=== PATIENT | male | born 1965 | race African-American/Black ===

== ENCOUNTER 2017-01-20 12:06 | Emergency (ER) | payer BC ==
[~2017-01-20] VITALS: Ht 182.9 cm; Wt 129.3 kg
[~2017-01-20 12:06] MED LIST: AMARYL4 MG PO; AMBIEN 5 MG TABL5 M1 PO; ASPIRIN325 PO; CLONAZEPAM; CLONAZEPAM 1 MG1 M1 PO; EFFIENT10 MG PO; GLUCOPHAGE1000 MG PO; GLYBURIDE 5 MG T5 M1; HYDRALAZINE 2525 MG PO; IMDUR 30 MG TAB30 M1 PO; LANTUS100 UNIT/M SUBQ; LIPITOR10 MG PO; LISINOPRIL10 MG PO; METOPROLOL SUCC50 MG PO; NITROGLYCERIN0.4 MG SUBLING; NOVOLOG100 UNIT/1 SUBQ; TOPROL XL25 MG PO; XANAX1 MG PO
[2017-01-20] MEDS ORDERED: NORCO 5-325 TA1 EACH PO (12:32)
[2017-01-20] MEDS ORDERED: CLEOCIN HCL150 MG PO (12:49)
== END 2017-01-20 13:01 | disposition home or self-care (01) ==
LOC: ER 12:06
DX: K04.7 Periapical abscess without sinus (principal); F41.0 Panic disorder [episodic paroxysmal anxiety]; E11.9 Type 2 diabetes mellitus without complications; Z86.14 Personal history of Methicillin resistant Staphylococcus aureus infection; Z87.891 Personal history of nicotine dependence; Z79.4 Long term (current) use of insulin

== ENCOUNTER 2017-08-23 21:58 | Inpatient (IN) | payer BC ==
[~2017-08-23] VITALS: Ht 182.9 cm; Wt 137.2 kg
--- NOTE | ~2017-08-23 | H ---
[facility] [place] [address] HISTORY AND PHYSICAL Name: RIZWAN PICKERING Room #: 203-P ADM IN M.R.#: [id number] Admission: 08/24/17 Attend Phys: Navneet Jacobson DO Discharge: Date of : 65 Report #: [id number] THIS REPORT FOR: //name// CC: Navneet DRIVER DATE OF SERVICE: 08/24/2017 HISTORY OF PRESENT ILLNESS: This 52-year-old black male was admitted with acute kidney injury and dehydration. He developed diarrhea suddenly yesterday and had 2 profuse liquid stools. He became weak and prostrate, his blood sugars over 500. He denied any recent antibiotic use or exposure to anyone with diarrhea. He says before yesterday he was doing fairly well with blood sugars usually in the 100s. PAST MEDICAL HISTORY: Multiple comorbidities including a myocardial infarction, treated here at [facility] in 2016 with a stent in the right coronary artery. He has had hypertensive heart disease without heart failure, lumbar radiculopathy, type 2 diabetes with neuropathy, obstructive sleep apnea, chronic kidney disease stage 3, obesity, anxiety, depression with panic attacks, GERD, previous alcohol abuse, history of iron deficiency anemia and diverticular bleed with chronic anemia. PREVIOUS SURGERIES: Left great toe bunionectomy, bilateral carpal tunnel surgery, uvulectomy, herniated diskectomy of the lumbar spine, skin graft to the right foot, arthroscopic shoulder surgery. Two drug-eluting stents to the right coronary artery. Osteomyelitis in 2014, diabetic foot ulcer, allergic rhinitis, depression following the of his from cancer several years ago. MEDICATIONS ON ADMISSION: Lantus 30 units daily, NovoLog sliding scale 5 units before meals for sugar 150-199, 10 units for over 200. Hydralazine 100 mg t.i.d., isosorbide mononitrate 60 mg daily, duloxetine 60 mg daily, cyclobenzaprine 10 mg t.i.d. p.r.n. muscle spasm. Nitroglycerin sublingual p.r.n. chest pain. Tamsulosin 0.4 mg daily, Ranexa 500 mg b.i.d., omeprazole 20 mg daily, carvedilol 25 mg b.i.d., atorvastatin 20 mg daily, metformin 1000 mg b.i.d., furosemide 40 mg daily, Klonopin 2 mg at bedtime and Xanax 1 mg t.i.d. p.r.n. anxiety, gabapentin 100 mg t.i.d., meclizine 25 mg q.6 h. p.r.n. vertigo. Wears CPAP at night. SOCIAL HISTORY: He lives alone. He used to work at [employer], but has been unable to return to work since 12/2015, and his return to work is questionable. He denies recent chest pain or shortness of breath. He did vomit once in the ambulance on the way to the hospital. He denies rash, confusion, dysphagia, headache. PHYSICAL EXAMINATION: [facility] [place] [facility] [address] [address] HISTORY AND PHYSICAL Name: RIZWAN PICKERING Room #: 203-P [facility] IN ..#: [id number] Admission: 08/24/17 Attend Phys: Navneet Jacobson, DO Discharge: Date of : 65 Report #: [id number] GENERAL: Large, weak but alert black male. VITAL SIGNS: Initial BP 76/47, currently 111/79. Pulse 84, respirations 16. Temp afebrile. HEAD: No rash or trauma. EARS, NOSE AND THROAT: Mucosa is dry. His tongue is thick in size. NECK: Supple, without bruits. LUNGS: Clear. CARDIOVASCULAR: Regular, without definite gallop. ABDOMEN: Obese and soft without tenderness. Bowel sounds are not hyperactive. EXTREMITIES: No edema. NEUROLOGIC: He has very poor sensory function in his feet. EKG shows nonspecific ST changes and intraventricular conduction delay. Chest x-ray shows no acute abnormality. LABORATORY DATA: Sodium 128, potassium 4.5, CO2 of 22, BUN 46, creatinine 2.7 (creatinine was 2.0 one month ago), blood sugar 129. Liver enzymes normal. Albumin normal. Estimated GFR 30. Hemoglobin 12.1 grams, white count 13,000, with a left shift. BNP slightly high at 462. IMPRESSION: 1. Acute kidney injury secondary to diarrhea secondary to gastroenteritis. 2. Chronic kidney disease stage 3. 3. Coronary artery disease with 2 coronary stents in the right coronary artery. 4. Hypertensive heart disease. 5. Diabetes mellitus type 2 with neuropathy. 6. Lumbar radiculopathy with lumbar degenerative disk disease. 7. Obstructive sleep apnea. 8. Prostatism. 9. Anxiety, depression. 10. Gastroesophageal reflux disease. 11. Hyponatremia secondary to dehydration. PLAN: Continue rehydration cautiously. Monitor cardiac and renal function closely. Hold metformin, advance diet and activity as able. PROGNOSIS: Guarded. Attempt to control blood sugars. <ELECTRONICALLY SIGNED> By: Navneet Jacobson DO 08/25/17 0719 0822 0933 Navneet Jacobson DO /nt
--- NOTE | ~2017-08-23 | D ---
[facility] [place] [address] DISCHARGE SUMMARY Name: RIZWAN PICKERING JR Room #: 203-P [facility] IN M.R.#: [id number] Admission: 08/24/17 Attend Phys: Navneet Jacobson DO Discharge: 08/26/17 Date of : 65 Report #: [id number] THIS REPORT FOR: //name// CC: Navneet Jacobson [facility] DATE OF SERVICE: 08/26/2017 HISTORY OF PRESENT ILLNESS: This 52-year-old black male who was admitted with acute kidney injury and dehydration following 1 day of severe diarrhea. His past history included multiple comorbidities including DM type 2 with neuropathy, previous myocardial infarction with stents in the right coronary artery, hypertension, hypertensive heart disease with heart failure, lower GI bleeding with anemia, lumbar radiculopathy, obstructive sleep apnea, chronic kidney disease stage 3, depression with panic attacks, GERD, diverticulosis and previous alcohol abuse. HOSPITAL COURSE: PHYSICAL EXAMINATION: GENERAL: Initial physical revealed a weak, large black male. VITAL SIGNS: Blood pressure was low at 76/47. He was afebrile. Head and neck were negative except for dry mucosa. LUNGS: Clear. HEART: Negative. ABDOMEN: Soft and obese, nontender. EXTREMITIES: Had no edema or open sores. NEUROLOGIC: With very poor sensory function in his feet. LABORATORY DATA: Initial BUN was 46, creatinine 2.7, sodium 128, potassium 4.5, CO2 22, blood sugar 129. Liver enzymes normal. White count 13,000; hemoglobin 12 g. BNP high at 462. The patient received IV fluids and supplemental oxygen. EKG showed intraventricular conduction delay and an old inferior wall CT. The patient improved. His final hemoglobin g, white count 7300. Sodium 132, potassium 4.4, CO2 24, BUN 34, creatinine 1.9, estimated GFR 45, serum albumin is low at 3.2. On 08/26/2017, patient has good appetite, stable vital signs, was ambulatory and felt better. Had no further diarrhea here. He was discharged on a diabetic, low salt diet. DISCHARGE MEDICATIONS: Ranexa 500 mg b.i.d., alprazolam 1 mg t.i.d. and clonazepam 2 mg at bedtime, Lantus 30 units daily. NovoLog before meals, check the log before every meal, 5 units for 150-199, 10 units for 200-249, 15 units for 250-299 and 20 units for over 300. If over 200 twice in a row, he is to call me for further instructions. He is also on atorvastatin 10 mg daily, isosorbide mononitrate 30 mg daily, hydrocodone 5/325 p.r.n. back pain, [address] [address] DISCHARGE SUMMARY Name: ED PICKERINGBLANE Beckman Room #: 203-P DIS IN M.R.#: [id number] Admission: 08/24/17 Attend Phys: Navneet Jacobson DO Discharge: 08/26/17 Date of : 65 Report #: [id number] tamsulosin 0.4 mg daily, clopidogrel 75 mg daily, ranitidine 150 mg daily, carvedilol 25 mg b.i.d., duloxetine 60 mg daily, metformin 1000 mg b.i.d., and zolpidem 5 mg at bedtime p.r.n. sleep. He will see me within 2 weeks for followup exam. FINAL DIAGNOSES: 1. Acute kidney injury secondary to shock kidney secondary to dehydration from acute gastroenteritis with diarrhea. 2. Hyponatremia. 3. Chronic kidney disease stage 3. 4. Hypertensive heart disease. 5. Coronary artery disease. 6. Obstructive sleep apnea. 7. Lumbar degenerative disk disease. 8. Diabetes mellitus type 2 with neuropathy. 9. Gastroesophageal reflux disease. 10. Chronic anxiety. <ELECTRONICALLY SIGNED> By: Navneet Jacobson DO 08/27/17 1004 0838 1013 Navneet Jacobson DO /nt
--- NOTE | ~2017-08-23 | EKG ---
[address] [address] ELECTROCARDIOGRAM REPORT Name: LADANRIZWAN Room #: 203-P ADM IN M.R.#: [id number] Admission: 08/24/17 Attend Phys: Navneet Jacobson DO Discharge: Date of : 65 Report #: [id number] THIS REPORT FOR: //name// [facility] ED Test Date: 2017-08-23 Test Time: 22:07:49 Pat Name: RIZWAN PICKERING Department: Room: 203 P Gender: M Bilingual Loan Processor: ERNESTINE : 1965 Requested By: Bobby Dailey Order Number: [id number] MD: Measurements Intervals [place] Rate: 86 P: 70 ID: 186 QRS: 6 QRSD: 123 T: 51 QT: 406 QTc: 486 Interpretive Statements Sinus rhythm Nonspecific intraventricular conduction delay Inferior infarct, old Minimal ST elevation, anterior leads Compared to ECG 01/23/2016 07:09:34 Intraventricular conduction delay now present ST (T wave) deviation now present Left ventricular hypertrophy no longer present Myocardial infarct finding still present [email or web address] By: 220 220 Epiphany Epiphany, /EPI
--- NOTE | ~2017-08-23 | EKG ---
[address] [place] [address] ELECTROCARDIOGRAM REPORT Name: RIZWAN PICKERING Room #: 203-P ADM IN M.R.#: [id number] Admission: 08/24/17 Attend Phys: Navneet Jacobson DO Discharge: Date of : 65 Report #: [id number] THIS REPORT FOR: //name// [facility] ED Test Date: 2017-08-23 Test Time: 22:07:49 Pat Name: RIZWAN PICKERING Department: Room: 203 P Gender: M Devops Architect: ERNESTINE : 1965 Requested By: Bobby Dailey Order Number: [id number] MD: Fuad Ham Measurements Intervals [place] Rate: 86 P: 70 MD: 186 QRS: 6 QRSD: 123 T: 51 QT: 406 QTc: 486 Interpretive Statements Sinus rhythm Nonspecific intraventricular conduction delay Inferior infarct, old Compared to ECG 01/23/2016 07:09:34 No significant change was found Electronically Signed On 08-24-2017 8:58:43 TIP STITCHER by Fuad Ham [email or web address] <ELECTRONICALLY SIGNED> By: Fuad Ham MD, [facility] 08/24/17 0858 06 06 Fuad Ham MD, [facility] /EPI
[~2017-08-23 21:58] MED LIST changes: +CLEOCIN HCL150 MG PO; +NORCO 5-325 TA1 EACH PO
[2017-08-23 21:59] VITALS: BP 76/47
[2017-08-23 23:16] LABS: HEMATOCRIT 36.9 % (42.0-52.0); HEMOGLOBIN 12.1 gm/dL (14.0-18.0); MCH 26.5 pg (26.0-34.0); MCHC 32.7 g/dL (28.0-37.0); RBC 4.56 mil/uL (4.50-6.00); RDW 13.4 % (10.5-14.5); WBC 13.3 thou/uL (4.0-11.0)
[2017-08-23 23:30] LABS: ANION GAP 12 mmol/L (7-16); BUN 46 mg/dL (7-18); CALCIUM 8.9 mg/dL (8.5-10.1); CHLORIDE 94 mmol/L (98-107); CO2 22 mmol/L (21-32); CREATININE 2.7 mg/dL (0.7-1.3); GLUCOSE 129 mg/dL (74-106); POTASSIUM 4.5 mmol/L (3.5-5.1); SODIUM 128 mmol/L (136-145)
[2017-08-23 23:38] LABS: ALBUMIN 3.6 g/dL (3.4-5.0); SGOT 22 U/L (15-37); SGPT 19 U/L (30-65); TOTAL BILIRUBIN 0.4 mg/dL (<0.1-1.0); TOTAL PROTEIN 7.1 g/dL (6.4-8.2); TROPONIN-I < 0.04 ng/mL (<0.06)
[2017-08-24] MEDS ORDERED: RENEXA PO (01:40)
[2017-08-24] MEDS ORDERED: LASIX 20 MG TAB20 MG PO (01:41)
[2017-08-24] MEDS ORDERED: FLOMAX0.4 MG PO (01:41)
[2017-08-24] MEDS ORDERED: PLAVIX 75 MG TA75 M1 PO (01:42)
[2017-08-24] MEDS ORDERED: ZANTAC 150MG T150 MG PO (01:43)
[2017-08-24] MEDS ORDERED: COREG25 M1 PO (01:45)
[2017-08-24] MEDS ORDERED: DULOXETINE HCL60 MG PO (01:46)
[2017-08-24 02:27] VITALS: BP 109/65
[2017-08-24 02:58] VITALS: BP 111/79
[2017-08-24 06:29] LABS: HEMATOCRIT 32.9 % (42.0-52.0); HEMOGLOBIN 10.7 gm/dL (14.0-18.0); MCH 26.6 pg (26.0-34.0); MCHC 32.4 g/dL (28.0-37.0); MCV 81.9 fL (80.0-100.0); RBC 4.02 mil/uL (4.50-6.00); RDW 13.5 % (10.5-14.5); WBC 11.1 thou/uL (4.0-11.0)
[2017-08-24 06:37] LABS: CALCIUM 8.5 mg/dL (8.5-10.1); CREATININE 2.7 mg/dL (0.7-1.3); POTASSIUM 3.7 mmol/L (3.5-5.1)
[2017-08-24 07:31] VITALS: BP 110/55
[2017-08-24 11:47] VITALS: BP 119/66
[2017-08-24 15:10] VITALS: BP 105/65
[2017-08-24 19:40] VITALS: BP 136/69
[2017-08-25 04:00] VITALS: BP 133/85
[2017-08-25 05:24] LABS: ALBUMIN 3.2 g/dL (3.4-5.0); CALCIUM 8.7 mg/dL (8.5-10.1); CREATININE 1.9 mg/dL (0.7-1.3); POTASSIUM 4.4 mmol/L (3.5-5.1); TOTAL BILIRUBIN 0.6 mg/dL (<0.1-1.0); TOTAL PROTEIN 7.1 g/dL (6.4-8.2)
[2017-08-25 05:25] LABS: ABSOLUTE NEUTROPHILS 3.5 thou/uL (1.4-8.2); BASOPHILS 0.6 % (0.0-2.0); EOSINOPHILS 1.2 % (0.0-3.0); HEMATOCRIT 36.7 % (42.0-52.0); HEMOGLOBIN 11.8 gm/dL (14.0-18.0); MCH 26.3 pg (26.0-34.0); MCHC 32.1 g/dL (28.0-37.0); MCV 81.9 fL (80.0-100.0); MONOCYTES 9.5 % (1.0-8.0); PLATELET COUNT 162 thou/uL (150-400); POLYS 48.7 % (36.0-66.0); RBC 4.48 mil/uL (4.50-6.00); RDW 13.7 % (10.5-14.5); WBC 7.3 thou/uL (4.0-11.0)
[2017-08-25] MEDS ORDERED: RANEXA500 MG PO (07:35)
[2017-08-25] MEDS ORDERED: ASPIRIN325 PO (07:36)
[2017-08-25] MEDS ORDERED: AMBIEN 5 MG TABL5 M1 PO (07:36)
[2017-08-25] MEDS ORDERED: METFORMIN HCL500 MG PO (07:37)
[2017-08-25 07:48] VITALS: BP 121/73
[2017-08-25 11:06] VITALS: BP 126/63
[2017-08-25 15:05] VITALS: BP 121/79
[2017-08-25 19:45] VITALS: BP 128/82
[2017-08-26 04:00] VITALS: BP 126/76
[2017-08-26 07:34] VITALS: BP 139/90
[2017-08-26 10:10] VITALS: BP 139/86
== END 2017-08-26 10:58 | disposition home or self-care (01) | DRG 391 ==
LOC: ER 21:58 → 2N 08-24 00:09 → EROBS 08-24 00:09 → 2N 08-24 02:10
PROVIDERS: Emergency Medicine; Internal Medicine
DX: K52.9 Noninfective gastroenteritis and colitis, unspecified (principal); N17.0 Acute kidney failure with tubular necrosis; K57.91 Diverticulosis of intestine, part unspecified, without perforation or abscess with bleeding; I13.0 Hypertensive heart and chronic kidney disease with heart failure and stage 1 through stage 4 chronic kidney disease, or unspecified chronic kidney disease; E87.1 Hypo-osmolality and hyponatremia; F41.9 Anxiety disorder, unspecified; I50.9 Heart failure, unspecified; E87.6 Hypokalemia; R09.02 Hypoxemia; E86.0 Dehydration; E11.40 Type 2 diabetes mellitus with diabetic neuropathy, unspecified; D64.9 Anemia, unspecified; G47.33 Obstructive sleep apnea (adult) (pediatric); E11.22 Type 2 diabetes mellitus with diabetic chronic kidney disease; N18.3 Chronic kidney disease, stage 3 (moderate); K21.9 Gastro-esophageal reflux disease without esophagitis; F32.9 Major depressive disorder, single episode, unspecified; I25.10 Atherosclerotic heart disease of native coronary artery without angina pectoris; M51.16 Intervertebral disc disorders with radiculopathy, lumbar region; Z60.2 Problems related to living alone; N40.0 Benign prostatic hyperplasia without lower urinary tract symptoms; M54.9 Dorsalgia, unspecified; Z95.5 Presence of coronary angioplasty implant and graft; Z86.14 Personal history of Methicillin resistant Staphylococcus aureus infection; I25.2 Old myocardial infarction; Z79.899 Other long term (current) drug therapy; Z87.891 Personal history of nicotine dependence
CPT/HCPCS: 10081

== ENCOUNTER 2018-07-14 14:10 | Inpatient (IN) | payer BC ==
[~2018-07-14] VITALS: Ht 185.4 cm; Wt 142.2 kg
[~2018-07-14 14:10] MED LIST changes: +COREG25 M1 PO; +DULOXETINE HCL60 MG PO; +FLOMAX0.4 MG PO; +LASIX 20 MG TAB20 MG PO; +METFORMIN HCL500 MG PO; +PLAVIX 75 MG TA75 M1 PO; +RANEXA500 MG PO; +RENEXA PO; +ZANTAC 150MG T150 MG PO
[2018-07-14 14:31] VITALS: BP 175/103
[2018-07-14 15:22] LABS: ABSOLUTE NEUTROPHILS 6.4 thou/uL (1.4-8.2); BASOPHILS 0.8 % (0.0-2.0); EOSINOPHILS 1.6 % (0.0-3.0); HEMATOCRIT 39.7 % (42.0-52.0); HEMOGLOBIN 12.9 gm/dL (14.0-18.0); LYMPHOCYTES 24.5 % (24.0-44.0); MCH 25.2 pg (26.0-34.0); MCHC 32.5 g/dL (28.0-37.0); MCV 77.6 fL (80.0-100.0); MONOCYTES 9.9 % (1.0-8.0); PLATELET COUNT 156 thou/uL (150-400); POLYS 63.2 % (36.0-66.0); RBC 5.12 mil/uL (4.50-6.00); RDW 16.8 % (10.5-14.5); WBC 10.1 thou/uL (4.0-11.0)
[2018-07-14 15:31] LABS: ANION GAP 6 mmol/L (7-16); BUN 37 mg/dL (7-18); CALCIUM 9.2 mg/dL (8.5-10.1); CHLORIDE 102 mmol/L (98-107); CO2 30 mmol/L (21-32); CREATININE 1.9 mg/dL (0.7-1.3); GLUCOSE 231 mg/dL (74-106); POTASSIUM 4.2 mmol/L (3.5-5.1); SODIUM 138 mmol/L (136-145)
[2018-07-14 15:41] LABS: ALBUMIN 3.4 g/dL (3.4-5.0); SGOT 17 U/L (15-37); SGPT 19 U/L (30-65); TOTAL BILIRUBIN 0.4 mg/dL (<0.1-1.0); TOTAL PROTEIN 7.6 g/dL (6.4-8.2); TROPONIN-I <0.06 ng/mL (<0.06)
[2018-07-14 16:53] LABS: AMP/METHAMP Negative (Negative); BARBITURATES Negative (Negative); BENZODIAZEPINES POSITIVE (Negative); COCAINE Negative (Negative); METHADONE Negative (Negative); OPIATES Negative (Negative); PCP Negative (Negative)
[2018-07-14] MEDS ORDERED: JARDIANCE10 MG PO (17:05)
[2018-07-14] MEDS ORDERED: ALPRAZOLAM1 MG PO (17:05)
[2018-07-14] MEDS ORDERED: HYDRALAZINE 2525 MG PO (17:06)
[2018-07-14] MEDS ORDERED: OMEPRAZOLE20 M2 PO (17:06)
[2018-07-14 17:08] VITALS: BP 148/84
[2018-07-14 17:33] VITALS: BP 175/96
[2018-07-14] MEDS ORDERED: LIPITOR 20 MG T20 M1 PO (17:46)
[2018-07-14] MEDS ORDERED: IMDUR 60 MG TAB60 M1 PO (17:47)
[2018-07-14] MEDS ORDERED: LASIX 40 MG TAB40 M2 PO (17:47)
[2018-07-14] MEDS ORDERED: FLEXERIL PO (17:48)
[2018-07-14] MEDS ORDERED: NITROGLYCERIN0.4 MG SUBLING (17:51)
[2018-07-14] MEDS ORDERED: NORCO 7.5-3251 EACH PO (17:52)
[2018-07-14 19:49] VITALS: BP 174/84
[2018-07-15 01:02] VITALS: BP 130/87
[2018-07-15 05:01] LABS: ANION GAP 9 mmol/L (7-16); BUN 34 mg/dL (7-18); CALCIUM 9.2 mg/dL (8.5-10.1); CHLORIDE 104 mmol/L (98-107); CO2 26 mmol/L (21-32); CREATININE 1.8 mg/dL (0.7-1.3); GLUCOSE 162 mg/dL (74-106); POTASSIUM 4.2 mmol/L (3.5-5.1); SODIUM 139 mmol/L (136-145); TROPONIN-I <0.06 ng/mL (<0.06)
[2018-07-15 05:09] LABS: HEMATOCRIT 39.7 % (42.0-52.0); HEMOGLOBIN 12.6 gm/dL (14.0-18.0); MCH 24.8 pg (26.0-34.0); MCHC 31.6 g/dL (28.0-37.0); MCV 78.3 fL (80.0-100.0); RBC 5.07 mil/uL (4.50-6.00); WBC 7.9 thou/uL (4.0-11.0)
[2018-07-15 06:09] VITALS: BP 145/93
[2018-07-15 07:10] VITALS: BP 149/96
[2018-07-15 11:45] VITALS: BP 127/83
[2018-07-15 17:33] VITALS: BP 137/85
[2018-07-15 19:12] VITALS: BP 142/88
[2018-07-15] MEDS ORDERED: FLOMAX0.4 MG PO (21:58)
[2018-07-16 04:44] VITALS: BP 121/75
[2018-07-16 07:21] VITALS: BP 147/94
--- NOTE | 2018-07-16 11:06 | EKG ---
[address] [address] ELECTROCARDIOGRAM REPORT Name: RIZWAN PICKERING Room #: 204-P [facility] IN M.R.#: [id number] Admission: 07/14/18 Attend Phys: Seven Palm MD Discharge: 07/16/18 Date of : 65 Report #: [id number] THIS REPORT FOR: //name// [facility] ED Test Date: 2018-07-14 Test Time: 14:20:21 Pat Name: RIZWAN PICKERING Department: Room: [facility] Gender: M Senior Sql Database Developer: ALAN : 1965 Requested By: Toño Em Order Number: [id number] MD: Darian Palomino Measurements Intervals [place] Rate: 89 P: 46 NC: 182 QRS: 3 QRSD: 115 T: 58 QT: 371 QTc: 452 Interpretive Statements Sinus rhythm Nonspecific intraventricular conduction delay Inferior infarct, old Baseline wander in lead(s) V2 Compared to ECG 08/23/2017 22:07:49 No significant changes Electronically Signed On 07-16-2018 11:06:12 [employer] by Darian Palomino [email or web address] <ELECTRONICALLY SIGNED> By: Darian Palomino MD 07/16/18 1106 1420 1420 Darian Palomino MD /EPI
--- NOTE | 2018-07-16 11:17 | EKG ---
[address] [address] ELECTROCARDIOGRAM REPORT Name: RIZWAN PICKERING JR Room #: 204-[facility] IN M.R.#: [id number] Admission: 07/14/18 Attend Phys: Seven Palm MD Discharge: 07/16/18 Date of : 65 Report #: [id number] THIS REPORT FOR: //name// [facility] Test Date: 2018-07-15 Test Time: 10:41:12 Pat Name: RIZWAN PICKERING Department: Room: 204 Gender: M Diesel Engine Inspector: KATHLEEN : 1965 Requested By: Darian Palomino Order Number: [id number] MD: Darian Palomino Measurements Intervals [place] Rate: 83 P: 45 IN: 180 QRS: 3 QRSD: 117 T: 53 QT: 383 QTc: 450 Interpretive Statements Sinus rhythm Nonspecific intraventricular conduction delay Inferior infarct, old Compared to ECG 08/23/2017 22:07:49 No significant changes Electronically Signed On 07-16-2018 11:17:07 LANDSCAPE ARTIST by Darian Palomino [email or web address] <ELECTRONICALLY SIGNED> By: Darian Palomino MD 07/16/18 1117 1041 1041 Darian Palomino MD /EPI
--- NOTE | 2018-07-18 15:48 | HC ---
[facility] [place] [address] CONSULTATION Name: RIZWAN PICKERING JR Room #: 204-P [facility] IN M.R.#: [id number] Admission: 07/14/18 Attend Phys: Seven Palm MD Discharge: 07/16/18 Date of : 65 Report #: [id number] THIS REPORT FOR: //name// CC: Seven Jacobson REASON FOR CONSULTATION: Chest pain with known CAD. HISTORY OF PRESENT ILLNESS: The patient is a 53-year-old with a history of known coronary artery disease, status post inferior MN, status post drug-eluting stents x 2 to his RCA back in 12/[address] Zabala. At that time, he was also noted to have mild to moderate disease of the LAD. He also has a history of diabetes, hypertension, hyperlipidemia and some medical noncompliance and prior right foot infection with MRSA. He reports that earlier in the year, the patient was noticing increased shortness of breath and was found to be anemic with a hemoglobin of 5. He had a GI evaluation at [facility] including upper and lower endoscopies, all of which were within normal limits. He does have a deputy sheriff lieutenant at [facility], Dr. Scruggs, and had recently undergone a repeat cardiac catheterization over 6 months ago per his memory and at that time, he was noted to have occlusion of the RCA stents. At that time, there was a discussion with Dr. Meza, they recommended not restenting given his problems with GI bleeding. Since then, the patient has been doing well until yesterday where he started noticing chest heaviness and tightness radiating to the neck that was about a 6/10 of intensity. This was associated with elevated blood pressure with systolics of 170s/110s. He came here to the Emergency Room as he was continued to have chest pain and was given some sublingual nitroglycerin and his blood pressure started to improve and the chest pain resolved. He did have some rebound pain yesterday, but this has since subsided. He denies any palpitations, PND, orthopnea, presyncope or syncope. REVIEW OF SYSTEMS: A 12-point review of systems was performed and was normal other than some mild diarrhea. PAST MEDICAL HISTORY: As above. SOCIAL HISTORY: No longer smokes. FAMILY HISTORY: Noncontributory. ALLERGIES: None. MEDICATIONS: Include clonazepam, insulin, Lipitor, Lasix 40 mg a day, Imdur 60 mg a day, Flexeril, nitro sublingual, [place], alprazolam, Jardiance, omeprazole, hydralazine, Coreg, and duloxetine. PHYSICAL EXAMINATION: VITAL SIGNS: Temperature is 36.6, pulse 75, respiratory rate 18, blood pressure [address] [address] CONSULTATION Name: RIZWAN PICKERING Room #: 204-P [facility] IN M.R.#: [id number] Admission: 07/14/18 Attend Phys: Seven Palm MD Discharge: 07/16/18 Date of : 65 Report #: [id number] is 149/96, but was as high as 175/103. His sats are 100%. GENERAL: He is in no acute distress, alert and oriented x 3. HEENT: Sclerae are anicteric. Oropharynx is clear. NECK: Supple with no thyromegaly or carotid bruits. HEART: Regular rate and rhythm with no murmurs, rubs, gallops. LUNGS: Clear to auscultation bilaterally. ABDOMEN: Obese, but nontender, nondistended with no hepatosplenomegaly. EXTREMITIES: 2+ pulses throughout. No edema, no clubbing. NEUROLOGIC: Cranial nerves 2-12 are intact. DATABASE: A 12-lead EKG shows normal sinus rhythm with evidence of an old inferior MN, but no ischemic changes. Chest x-ray shows no acute process. LABORATORY DATA: Hemoglobin is 12.6, white count 7.9, platelets 142. Coags: INR is 1.0. Chemistry: Sodium 139, potassium 4.2, BUN 34, creatinine 1.8. Troponins are negative x 3. ProBNP is 183. TSH is 0.078. Urine drug screen is positive for benzos. ASSESSMENT: 1. Chest pain, possibly related to unstable angina. 2. Poorly controlled hypertension. 3. Diabetes mellitus. 4. Coronary artery disease. 5. Prior inferior myocardial infarction. 6. Chronic renal insufficiency. SUMMARY: The patient is a 53-year-old with a history of known CAD, presenting with worsening chest pain. His EKG shows no evidence of ischemia and he has had troponins that are negative x 3. His symptoms may be related to unstable angina versus poorly controlled hypertension. I recommended that we start Norvasc 5 mg daily for his blood pressure and we will obtain a nuclear stress test tomorrow. If this is abnormal, then we may need to proceed with repeat cardiac catheterization. Given his history of prior GI bleeding, perhaps a bare metal stent would be the best option given that it is not clear if he could be on long-term antiplatelets. <ELECTRONICALLY SIGNED> By: Darian Palomino MD 07/18/18 1548 0957 32 Darian Palomino MD /nt
== END 2018-07-16 10:20 | disposition left against medical advice (07) | DRG 303 ==
LOC: ER 14:10 → EROBS 16:32 → 2N 17:33
PROVIDERS: Physician Assistant; ADMIT Hospitalist
DX: I25.119 Atherosclerotic heart disease of native coronary artery with unspecified angina pectoris (principal); I13.0 Hypertensive heart and chronic kidney disease with heart failure and stage 1 through stage 4 chronic kidney disease, or unspecified chronic kidney disease; R07.9 Chest pain, unspecified; E11.22 Type 2 diabetes mellitus with diabetic chronic kidney disease; E78.5 Hyperlipidemia, unspecified; N18.9 Chronic kidney disease, unspecified; F41.9 Anxiety disorder, unspecified; I50.9 Heart failure, unspecified; R19.7 Diarrhea, unspecified; Z53.21 Procedure and treatment not carried out due to patient leaving prior to being seen by health care provider; I25.2 Old myocardial infarction; Z95.5 Presence of coronary angioplasty implant and graft; Z86.14 Personal history of Methicillin resistant Staphylococcus aureus infection; Z79.899 Other long term (current) drug therapy; Z79.4 Long term (current) use of insulin; Z87.19 Personal history of other diseases of the digestive system; Z87.891 Personal history of nicotine dependence; Z23 Encounter for immunization
CPT/HCPCS: 10081